=== PATIENT | male | born 1965 | race Native Hawaiian/Other Pacific Islander ===

== ENCOUNTER 2018-01-03 10:08 | Outpatient (CLI) | payer OTHER ==
[2018-01-03 10:46] LABS: POTASSIUM 3.8 mmol/L (3.6-5.2)
== END 2018-01-03 18:10 | disposition home or self-care (01) ==
LOC: LABW 10:08
PROVIDERS: Podiatrist
DX: M10.072 Idiopathic gout, left ankle and foot (principal)
CPT/HCPCS: 36415; 80053; 84550; 85651; 86039; 86140; 86430